=== PATIENT | female | born 1985 ===

== ENCOUNTER 2019-02-27 19:38 | Emergency (ER) | payer MEDICAID ==
[~2019-02-27] VITALS: Ht 167.6 cm; Wt 59.1 kg
[2019-02-27 19:47] VITALS: Ht 167.6 cm; Wt 59.1 kg
[2019-02-27 20:45] LABS: BASOPHILS 0.4 % (0-2); EOSINOPHILS 3.4 % (0-7); HEMATOCRIT 41.5 % (36.0-48.0); HEMOGLOBIN 14.4 g/dL (12-16); IMMATURE GRANULOCYTES 0.4 % (0-5); LYMPHOCYTES 21.8 % (15-50); MCH 31.4 pg (26.0-34.0); MCHC 34.7 g/dL (31.0-37.0); MCV 90.4 fL (80.0-100.0); MEAN PLATELET VOLUME 11.8 fL (7.4-10.4); MONOCYTES 8.5 % (2-11); NEUTROPHILS 65.5 % (40-80); PLATELET COUNT 327 10x3/uL (130-400); RBC 4.59 10x6/uL (4.00-5.40); RDW 12.5 % (11.5-14.5); WBC 7.7 10x3/uL (4.8-10.8)
[2019-02-27 21:41] LABS: APTT 29.1 SECONDS (22.8-39.4); INR 0.98 (0.85-1.17); PROTIME 12.5 SECONDS (11.6-15.0)
[2019-02-27 21:46] LABS: ALBUMIN 3.9 g/dL (3.4-5.0); ALKALINE PHOSPHATASE 65 U/L (46-116); ALT (SGPT) 16 U/L (10-68); BILIRUBIN - TOTAL 0.32 mg/dL (0.2-1.3); CALC OSMOLALITY 278 mosm/kg (275-300); CALCIUM 8.8 mg/dL (8.5-10.1); CARBON DIOXIDE 27.5 mmol/L (21.0-32.0); CHLORIDE - SERUM 103 mmol/L (98-107); CREATININE - SERUM 0.7 mg/dL (0.6-1.3); GLUCOSE 80 mg/dL (74-106); POTASSIUM - SERUM 3.7 mmol/L (3.5-5.1); PROTEIN - SERUM 7.8 g/dL (6.4-8.2); SODIUM 141 mmol/L (136-145); UREA NITROGEN 11 mg/dL (7-18); eGFR NON AFRICAN AMERICAN > 90 mL/min (90-120)
[2019-02-27 21:58] LABS: CKMB 0.2 U/L (0.0-3.6); CREATINE KINASE 71 UL (21-215); MAGNESIUM - SERUM 1.9 mg/dL (1.8-2.4)
[2019-02-27 22:03] LABS: TROPONIN-I < 0.017 ng/mL (0.000-0.060)
[2019-02-27] MEDS ORDERED: VOLTAREN75 MG PO (23:42)
[2019-02-27] MEDS ORDERED: LISINOPRIL5 MG PO (23:42)
[2019-02-27] MEDS ORDERED: ZANAFLEX4 MG PO (23:42)
[2019-02-27 23:58] VITALS: BP 140/71
== END 2019-02-27 23:58 | disposition home or self-care (01) ==
LOC: D.ER 19:38
PROVIDERS: Family Medicine
DX: M62.838 Other muscle spasm (principal); I10 Essential (primary) hypertension; R07.89 Other chest pain